=== PATIENT | female | born 1970 | race Two or more races ===

== ENCOUNTER 2019-06-22 00:43 | Emergency (ER) | payer OTHER ==
[~2019-06-22] VITALS: Ht 162.6 cm; Wt 78.0 kg
[2019-06-22 00:55] VITALS: Ht 162.6 cm; Wt 78.0 kg
[2019-06-22 02:25] VITALS: BP 131/80
== END 2019-06-22 02:25 | disposition home or self-care (01) ==
LOC: ED 00:43
DX: R10.816 Epigastric abdominal tenderness (principal); R11.10 Vomiting, unspecified